=== PATIENT | female | born 1985 | race Hispanic/Latino ===

== ENCOUNTER 2022-06-18 07:58 | Emergency (ER) | payer SELFPAY ==
--- OUTSIDE RECORDS SUMMARY | 2022-06-18 08:03 | XMS REPORT | Continuity of Care Document ---
:1985 Author Organization [facility] t Address [address] [place] [address] Care Team Providers Name Role Phone Yolanda Bucio Primary Care Physician [phone] Sue Loomis RN, Yady Attending Clinician Unavailable Lab, Adc Fam Pob I Attending Clinician Unavailable Rachel Palm Attending Clinician Payers Payer Name Policy Type Policy Number Effective Date Ex[id number] 2016 00:00:00 OUT OF STATE Problems Condition Condition Condition Status Onset Resolution Last Treating Co mments Source Name Details Category Date Date Treatment Clinician Date Neck mass Neck mass Disease Active 2017-09 Overview: Univers 2-10 Added ity of 00:00: automatic [place] 00 ally from Medical request Branch for surgery [id number] Localized Localized Disease Active 2017-09 Uni vers swelling, swelling, 1-02 ity of mass and mass and 00:00: [place] lump, neck lump, neck 00 Me dical Branch Positive Positive Disease Active Unive rs [facility] [facility] 9- ity of (antinucle [place] Medical antibody) antibody) Bran ch Fatty Fatty Disease Active Univers liver liver 05-23 ity of 00:00: [place] 00 Medical Branch Sludge in Sludge in Disease Active Uni vers gallbladde gallbladde 05-23 it y of r r 00:00: [place] 00 Medical Branch Abnormal Abnormal Disease Active Unive rs liver liver 04-25 ity of function function 00:00: [place] tests tests 00 Medical Branch Dyslipidem Dyslipidem Disease Active U aliciaers ia ia 7-28 ity of 00:00: [place] 00 Medical Branch Vitamin D Vitamin D Disease Active Uni vers deficiency deficiency 04-25 it y of 00:00: [place] 00 Medical Branch Type 2 Type 2 Disease Active Univers diabetes diabetes 04-18 ity of mellitus mellitus 00:00: [place] without without 00 Medical complicati complicati Br anch on, on, without without long-term long-term current current use of use of insulin insulin Obesity Obesity Disease Active Univers (BMI (BMI - ity of 30-39.9) 30-39.9) 00:00: [place] 00 Medical Branch Fatigue, Fatigue, Disease Active Unive rs unspecifie unspecifie 04-18 it y of d type d type 00:00: [place] Medical Branch Allergies, Adverse Reactions, Alerts Allergy Allergy Status Severity Reaction(s) Onset Inactive Treating Comm ents Source Name Type Date Date Clinician NO KNOWN Drug Active [facility] ALLERGIE Class ity of S [facility] Social History Social Habit Start Date Stop Date Quantity Comments Source Sex Assigned At [facility] [place] [facility] Branch Exposure to Not sure [facility] SARS-CoV-2 (event) Medica l Branch Alcohol intake 2018-11-03 2018-11-03 [facility] 00:00:00 00:00:00 [facility] Branch Smoking Status Start Date Stop Date Source Never smoker [facility] Medications Ordered Filled Start Stop Current Ordering Indication Dosage Frequency Signature Comments Components Source Medication Medication Date Date Medication? Clinician (SIG) Name Name glimepiride No 1mg 1 mg tablet 4-23 00:00: 00 metformin 2021- No 1mg 1,000 mg 4-23 tablet 00:00: 00 Dose 2021-0 No Unknown 4-23 00:00: 00 Dose 2021-0 No Unknown 4-23 00:00: 00 Dose 2021-0 No Unknown 4-23 00:00: 00 Dose 2021-0 No Unknown 4-23 00:00: 00 Dose 2021-0 No Unknown 4-23 00:00: 00 Dose 2021-0 No Unknown 4-23 00:00: 00 Dose 2021-0 No Unknown 4-23 00:00: 00 Dose 2021-0 No Unknown 4-23 00:00: 00 Dose 2021-0 No Unknown 4-23 00:00: 00 Dose 2022-0 No Unknown 4-23 00:00: 00 Dose 2022-0 No Unknown 4-23 00:00: 00 Dose 2022-0 No Unknown 4-23 00:00: 00 Dose 2022-0 No Unknown 4-23 00:00: 00 Dose 2022-0 No Unknown 4-23 00:00: 00 Dose 2022-0 No Unknown 4-23 00:00: 00 Dose 2022-0 No Unknown 4-23 00:00: 00 Dose 2022-0 No Unknown 4-23 00:00: 00 Dose 2022-0 No Unknown 4-23 00:00: 00 Dose 2022-0 No Unknown 4- 00:00: 00 Dose 2022-0 No Unknown 4-23 00:00: 00 Dose 2022-0 No Unknown 4- 00:00: 00 glimepiride 2021-1 No 1mg 1 mg tablet 1-27 00:00: 00 metformin 2021-1 No 1mg 1,000 mg 1-27 tablet 00:00: 00 glimepiride 2021-0 No 1mg 1 mg tablet 7-13 00:00: 00 metformin 2021-0 No 1mg 1,000 mg 7-13 tablet 00:00: 00 glimepiride 1-0 No 1mg 1 mg tablet 7-02 00:00: 00 metformin 2021-0 No 1mg 1,000 mg 7-02 tablet 00:00: 00 cyclobenzap 2021-0 No 1mg rine 7.5 mg 6-28 tablet 00:00: 00 ibuprofen 2021-0 No 1mg 600 mg 6-28 tablet 00:00: 00 levofloxaci 2021-0 No 1mg n 250 mg 5-26 tablet 00:00: 00 Macrobid 2021-0 No 1mg 100 mg 5-20 capsule 00:00: 00 Bactrim DS 2021-0 No 1mg 800 mg-160 3-27 mg tablet 00:00: 00 Bactrim DS 2021-0 No 1mg 800 mg-160 3-26 mg tablet 00:00: 00 mupirocin 2 1-0 No 1% % topical 3-18 ointment 00:00: 00 glimepiride 2021-0 No 1mg 1 mg tablet 3-18 00:00: 00 metformin 2021-0 No 1mg 1,000 mg 3-18 tablet 00:00: 00 metformin 2021-0 No 1mg 1,000 mg 1-12 tablet 00:00: 00 glimepiride 2020-1 No 1mg 1 mg tablet 2-31 00:00: 00 metformin 2020-1 No 1mg 1,000 mg 2-31 tablet 00:00: 00 glimepiride 2020-1 No 1mg 2 mg tablet 0-01 00:00: 00 metformin 2020-1 No 1mg 1,000 mg 0-01 tablet 00:00: 00 hydroxyzine 2020-0 No 1mg HCl 50 mg 8-10 tablet 00:00: 00 fluoxetine 2020-0 No 1mg 20 mg 8-10 capsule 00:00: 00 glimepiride 2020-0 No 1mg 2 mg tablet 3-20 00:00: 00 loratadine 2020-0 No 1mg 10 mg 3-20 tablet 00:00: 00 metformin 2020-0 No 1mg 1,000 mg 3-20 tablet 00:00: 00 azithromyci 2020-0 No mg n 250 mg 3-03 tablet 00:00: 00 glimepiride 2019-0 No 1mg 2 mg tablet 9-14 00:00: 00 metformin 2019-0 No 1mg 1,000 mg 9-14 tablet 00:00: 00 glimepiride 2019-0 No 1mg 2 mg tablet 6-29 00:00: 00 metformin 2019-0 No 1mg 1,000 mg 6-29 tablet 00:00: 00 metformin 2019-0 No 1mg 1,000 mg 6-04 tablet 00:00: 00 glimepiride 2019-0 No 1mg 2 mg tablet 5-25 00:00: 00 glimepiride 2019-0 No 1mg 2 mg tablet 5-25 00:00: 00 metformin 2019-0 No 1mg 500 mg 5-25 tablet 00:00: 00 glimepiride 2019-0 Yes [id number] 2mg Take 1 Univers 2 mg tablet 3-04 tablet by ity of 00:00: mouth [place] 00 daily with Medical breakfast. Branch glimepiride 0 Yes [id number] 2mg Take 1 Univers 2 mg tablet 3-04 tablet by ity of 00:00: mouth [place] 00 daily with Medical breakfast. Branch ceFAZolin 2018-1 Yes 1000mg Univer s (ANCEF) 2-31 ity of 1,000 mg in 12:00: [place] NaCl 0.9% 00 Medical (NS) 50 mL Branch ADD-VANTAGE ceFAZolin 2017-09 Yes 1000mg Univer s (ANCEF) 2-31 ity of 1,000 mg in 12:00: [place] NaCl 0.9% 00 Medical (NS) 50 mL Branch ADD-VANTAGE metFORMIN Yes [id number] 1000mg Take 1 Univers 1,000 mg 5-04 tablet by ity of tablet 00:00: mouth 2 [place] (two) Medical times Branch daily with meals. metFORMIN Yes [id number] 1000mg Take 1 Univers 1,000 mg 5-04 tablet by ity of tablet 00:00: mouth 2 [place] (two) Medical times Branch daily with meals. metformin 0 No 1mg 500 mg 2-23 tablet 00:00: 00 metformin 0 No 1mg 500 mg 2-10 tablet 00:00: 00 metformin 0 No 1mg 500 mg 6-17 tablet 00:00: 00 metformin 20160 No 1mg 500 mg 3-20 tablet 00:00: 00 metformin 1 No 1mg 1,000 mg 2-16 tablet 00:00: 00 Paxil 20 mg 2014-09 No 1mg tablet 2-11 00:00: 00 metformin 2014-09 No 1mg 500 mg 2-11 tablet 00:00: 00 metformin 1 No 1mg 500 mg 0-30 tablet 00:00: 00 Immunizations Ordered Filled Immunization Date Status Comments Sour e Immunization Name Name Tdap 2020-09-04 Completed 00:00:00 HEP B, Adult Dosage 2018-01-06 Completed Unive rsity of 00:00:00 [facility] HEP B, Adult Dosage 2018-01-06 Completed Unive rsity of 00:00:00 [facility] HEP B, Adult Dosage 2017-08-05 Completed Unive rsity of 00:00:00 [facility] HEP B, Adult Dosage 2017-08-05 Completed Unive rsity of 00:00:00 [facility] HEP B, Adult Dosage 2017-07-04 Completed Unive rsity of 00:00:00 [facility] HEP B, Adult Dosage 2017-07-04 Completed Unive rsity of 00:00:00 [facility] Td 2009 Completed University 00:00:00 [facility] Td 2009 Completed University 00:00:00 [facility] Vital Signs Vital Name Observation Time Observation Value Comments Source BP Systolic 2022-01-19 13:50:00 125 mm[Hg] BP Diastolic 2022-01-19 13:50:00 76 mm[Hg] Weight Measured 2022-01-19 13:50:00 176.40 pounds Height Measured 2022-01-19 13:50:00 66.00 inches Body Temperature 2022-01-19 13:50:00 98.40 degrees Heart Rate 2022-01-19 13:50:00 74.00 /min Respiratory Rate 2022-01-19 13:50:00 BP Systolic 2021-08-27 08:16:00 125 mm[Hg] BP Diastolic 2021-08-27 08:16:00 78 mm[Hg] Weight Measured 2021-08-27 08:16:00 172.00 pounds Height Measured 2021-08-27 08:16:00 66.00 inches Body Temperature 2021-08-27 08:16:00 98.20 degrees Heart Rate 2021-08-27 08:16:00 76.00 /min Respiratory Rate 2021-08-27 08:16:00 BP Systolic 2021-08-25 08:11:00 113 mm[Hg] BP Diastolic 2021-08-25 08:11:00 72 mm[Hg] Weight Measured 2021-08-25 08:11:00 172.20 pounds Height Measured 2021-08-25 08:11:00 66.00 inches Body Temperature 2021-08-25 08:11:00 98.20 degrees Heart Rate 2021-08-25 08:11:00 63.00 /min Respiratory Rate 2021-08-25 08:11:00 BP Systolic 2021-03-26 16:15:00 117 mm[Hg] BP Diastolic 2021-03-26 16:15:00 72 mm[Hg] Weight Measured 2021-03-26 16:15:00 168.80 pounds Height Measured 2021-03-26 16:15:00 66.00 inches Body Temperature 2021-03-26 16:15:00 98.10 degrees Heart Rate 2021-03-26 16:15:00 67.00 /min Respiratory Rate 2021-03-26 16:15:00 17.00 /min BP Systolic 2021-02-15 16:00:00 109 mm[Hg] BP Diastolic 2021-02-15 16:00:00 67 mm[Hg] Weight Measured 2021-02-15 16:00:00 166.60 pounds Height Measured 2021-02-15 16:00:00 66.00 inches Body Temperature 2021-02-15 16:00:00 99.20 degrees Heart Rate 2021-02-15 16:00:00 70.00 /min Respiratory Rate 2021-02-15 16:00:00 20.00 /min BP Systolic 2020-12-22 16:28:00 107 mm[Hg] BP Diastolic 2020-12-22 16:28:00 63 mm[Hg] Weight Measured 2020-12-22 16:28:00 165.40 pounds Height Measured 2020-12-22 16:28:00 66.00 inches Body Temperature 2020-12-22 16:28:00 98.30 degrees Heart Rate 2020-12-22 16:28:00 66.00 /min Respiratory Rate 2020-12-22 16:28:00 17.00 /min BP Systolic 2020-12-14 16:18:00 120 mm[Hg] BP Diastolic 2020-12-14 16:18:00 74 mm[Hg] Weight Measured 2020-12-14 16:18:00 168.80 pounds Height Measured 2020-12-14 16:18:00 66.00 inches Body Temperature 2020-12-14 16:18:00 99.10 degrees Heart Rate 2020-12-14 16:18:00 70.00 /min Respiratory Rate 2020-12-14 16:18:00 17.00 /min BP Systolic 2020-09-28 15:20:00 106 mm[Hg] BP Diastolic 2020-09-28 15:20:00 65 mm[Hg] Weight Measured 2020-09-28 15:20:00 168.20 pounds Height Measured 2020-09-28 15:20:00 66.00 inches Body Temperature 2020-09-28 15:20:00 98.70 degrees Heart Rate 2020-09-28 15:20:00 67.00 /min Respiratory Rate 2020-09-28 15:20:00 BP Systolic 2020-09-04 15:16:00 116 mm[Hg] BP Diastolic 2020-09-04 15:16:00 74 mm[Hg] Weight Measured 2020-09-04 15:16:00 Height Measured 2020-09-04 15:16:00 66.00 inches Body Temperature 2020-09-04 15:16:00 98.60 degrees Heart Rate 2020-09-04 15:16:00 75.00 /min Respiratory Rate 2020-09-04 15:16:00 16.00 /min BP Systolic 2020-09-02 13:41:00 101 mm[Hg] BP Diastolic 2020-09-02 13:41:00 61 mm[Hg] Weight Measured 2020-09-02 13:41:00 200.00 pounds Height Measured 2020-09-02 13:41:00 66.00 inches Body Temperature 2020-09-02 13:41:00 98.20 degrees Heart Rate 2020-09-02 13:41:00 72.00 /min Respiratory Rate 2020-09-02 13:41:00 Procedures This patient has no known procedures. Plan of Care Planned Activity Planned Date Details Comments Source Goal Plan of Care Note [code = 99005-5] Goal Plan of Care Note [code = 91376-3] Goal Plan of Care Note [code = 28923-3] Goal Plan of Care Note [code = 50806-8] Goal Plan of Care Note [code = 46296-5] Goal Plan of Care Note [code = 64715-1] Goal Plan of Care Note [code = 76977-2] Goal Plan of Care Note [code = 84789-1] Goal Plan of Care Note [code = 55551-1] Goal Plan of Care Note [code = 08515-4] Goal Plan of Care Note [code = 81281-6] Goal Plan of Care Note [code = 57656-2] Goal Plan of Care Note [code = 76280-7] Goal Plan of Care Note [code = 58170-9] Goal Plan of Care Note [code = 91809-8] Goal Plan of Care Note [code = 55429-0] Goal Plan of Care Note [code = 70197-1] Goal Plan of Care Note [code = 35375-3] Goal Plan of Care Note [code = 08451-4] Goal Plan of Care Note [code = 62205-4] Goal Plan of Care Note [code = 31347-2] Goal Plan of Care Note [code = 49307-5] Goal Plan of Care Note [code = 47315-9] Goal Plan of Care Note [code = 78012-9] Goal Plan of Care Note [code = 50364-2] Goal Plan of Care Note [code = 92711-7] Goal Plan of Care Note [code = 44760-4] Goal Plan of Care Note [code = 77193-3] Goal Plan of Care Note [code = 09771-3] Goal Plan of Care Note [code = 04598-6] Goal Plan of Care Note [code = 82084-9] Encounters Start End Encounter Admission Attending Care Care Encounter Source Date/Time Date/Time Type Type Clinicians Facility Department ID 2022-04-25 2022-04-25 Outpatient [id number] 00:00:00 00:00:00 Visit [id number] 2020-04-16 2020-04-16 Letter Sue [facility] [id number] Univers 00:00:00 00:00:00 (Out) IGNACIO Loomis [id number] ity of [facility] [id number] [place] [phone] [address] 2020-04-14 2020-04-14 Laboratory Lab, [facility] Pob I [facility] 1.2. [id number] Univers 13:17:43 13:37:43 Only MyrnaNatalieRachel [facility] [id number] ity [facility] [id number] [place] Paulina [phone] [address] Office Building [address] 2020-04-14 2020-04-14 Outpatient R [facility] [id number] Univers 13:20:00 13:20:00 [id number] ity [facility] 2020-04-14 2020-04-14 Outpatient R [facility] [id number] [address] [place] [address] 13:20:00 13:20:00 [facility] [place] [facility] Results Test Description Test Time Test Comments Results Result Comments Source LIPID PANEL 2022-01-21 00:14:15 Test Item Value Reference Range Interpretation Comme nts CHOLESTEROL (test code = 2210) 180 MG/DL <200 TRIGLYCERIDES (test code = 2232) 229 MG/DL <150 H HDL CHOLESTEROL (test code = 38 MG/DL >39 L 2220) CALC LDL CHOL (test code = 2237) 107 MG/DL <100 H NOTE: CALCULATED LDL IS BASED ON TATYANA-CALHOUN METHOD WHICHINCLUDES A DJUSTABLE TRIGLYCERIDE:VL DL CHOLESTEROL RATIO.THIS FACT OR VARIES BY MEASURED TRIGLY CERIDE AND NON-HDLCHOLESTE ROL CONCENTRATIONS WITH INCREASED CALCULATED LDL SEENIN HIGHER T RIGLYCERIDE OR LOWER NON-HDL S PECIMENS. FOR MOREINFORMATION , SEE CLIENT ANNOUNCEMENT AT [email or web address] RISK RATIO LDL/HDL (test code = 2.82 RATIO <3.22 UNLESS OTHERWISE INDICATED, ALL 2238) TESTING PERFORM ED ATCLINICAL PATHOLOGY [facility] Laboratory. [address] [place] [id number] LABORATORY DIRE CTOR: RUBY CANALES M.D. CLIA NUMBER [id number] [facility] [place]. [id number] LIPID [id number] 00:00:00 Test Item Value Reference Range Interpretation Comments CHOLESTEROL (test code = 2210) 180 MG/DL TRIGLYCERIDES (test code = 2232) 229 MG/DL HDL CHOLESTEROL (test code = 2220) 38 MG/DL CALC LDL CHOL (test code = 2237) 107 MG/DL RISK RATIO LDL/HDL (test code = 2.82 RATIO 2238) HEMOGLOBIN [id number] 03:17:58 Test Item Value Reference Range Interpretation Comments HEMOGLOBIN A1c (test code = 03796) 5.7 % 4.2-5.6 H HEMOGLOBIN [id number] 00:00:00 Test Item Value Reference Range Interpretation Comments HEMOGLOBIN A1c (test code = 97238) 5.7 % HEMOGLOBIN [id number] 00:00:00 Test Item Value Reference Range Interpretation Comments HEMOGLOBIN A1c (test code = 42140) 5.7 % HEMOGLOBIN [id number] 00:00:00 Test Item Value Reference Range Interpretation Comments HEMOGLOBIN A1c (test code = 21915) 5.6 % HEMOGLOBIN [id number] 00:00:00 Test Item Value Reference Range Interpretation Comments HEMOGLOBIN A1c (test code = 81889) 5.6 % LIPID [id number] 00:00:00 Test Item Value Reference Range Interpretation Comments CHOLESTEROL (test code = 2210) 172 MG/DL TRIGLYCERIDES (test code = 2232) 106 MG/DL HDL CHOLESTEROL (test code = 2220) 45 MG/DL CALC LDL CHOL (test code = 2237) 107 MG/DL RISK RATIO LDL/HDL (test code = 2.38 RATIO 2238) MICROALBUMIN/CREATININE, RANDOM AND [id number] 00:00:00 Test Item Value Reference Range Interpretation Comments CREATININE, URINE, CONC. (test 182.4 MG/DL code = 2072) ALBUMIN, URINE, RANDOM (test code 2.1 MG/DL = 81947) CALC ALBUMIN/CREAT, RND (test 12 MG/G code = 84377) MICROALBUMIN/CREATININE, RANDOM AND [id number] 00:00:00 Test Item Value Reference Range Interpretation Comments CREATININE, URINE, TEST NOT PERFORMED MG/DL CONC. (test code = 2072) ALBUMIN, URINE, TEST NOT PERFORMED MG/DL RANDOM (test code = 99097) CALC ALBUMIN/CREAT, TEST NOT PERFORMED MG/G RND (test code = 88112) LIPID [id number] 00:00:00 Test Item Value Reference Range Interpretation Comments CHOLESTEROL (test code = 2210) 156 MG/DL TRIGLYCERIDES (test code = 2232) 134 MG/DL HDL CHOLESTEROL (test code = 2220) 58 MG/DL CALC LDL CHOL (test code = 2237) 76 MG/DL RISK RATIO LDL/HDL (test code = 1.31 RATIO 2238) COMPREHENSIVE METABOLIC [id number] 00:00:00 Test Item Value Reference Range Interpretation Comments GLUCOSE (test code = 2217) 98 MG/DL BUN (test code = 2208) 14 MG/DL CREATININE (test code = 2214) 0.65 MG/DL eGFR AMER. (test code 132 ML/MIN/1.73 = 32965) eGFR NON- AMER. (test 114 ML/MIN/1.73 code = 91547) CALC BUN/CREAT (test code = 22 RATIO 2234) SODIUM (test code = 2231) 138 MEQ/L POTASSIUM (test code = 2228) 4.2 MEQ/L CHLORIDE (test code = 2215) 103 MEQ/L CARBON DIOXIDE (test code = 23 MEQ/L 2205) CALCIUM (test code = 2209) 9.5 MG/DL PROTEIN, TOTAL (test code = 6.8 G/DL 2228) ALBUMIN (test code = 2201) 4.2 G/DL CALC GLOBULIN (test code = 2.6 G/DL 2239) CALC A/G RATIO (test code = 1.6 RATIO 2233) BILIRUBIN, TOTAL (test code = 0.3 MG/DL 2206) ALKALINE PHOSPHATASE (test 41 U/L code = 220) AST (test code = 2218) 15 U/L ALT (test code = 2219) 9 U/L CBC W/AUTO [id number] 00:00:00 Test Item Value Reference Range Interpretation Comments WBC (test code = 1001) 5.5 K/UL RBC (test code = 1002) 4.49 M/UL HEMOGLOBIN (test code = 1003) 12.9 G/DL HEMATOCRIT (test code = 1004) 38.7 % MCV (test code = 1005) 86.2 fL MCH (test code = 1006) 28.7 PG MCHC (test code = 1007) 33.3 G/DL RDW (test code = 1038) 13.0 % NEUTROPHILS (test code = 1008) 59.0 % LYMPHOCYTES (test code = 1010) 34.1 % MONOCYTES (test code = 1011) 6.3 % EOSINOPHILS (test code = 1012) 0.2 % BASOPHILS (test code = 1013) 0.2 % IMMATURE GRANULOCYTES (test 0.2 % code = 1036) NUCLEATED RBCS (test code = 0.0 /100WBC'S 1065) PLATELET COUNT (test code = 173 K/UL 1015) ABSOLUTE NEUTROPHILS (test code 3.26 K/UL = 1066) ABSOLUTE LYMPHOCYTES (test code 1.88 K/UL = 1067) ABSOLUTE MONOCYTES (test code = 0.35 K/UL 1068) ABSOLUTE EOSINOPHILS (test code 0.01 K/UL = 1040) ABSOLUTE BASOPHILS (test code = 0.01 K/UL 1069) ABS IMMATURE GRANULOCYTES (test 0.01 K/UL code = 1020) ABS NUCLEATED RBCS (test code = 0.00 K/UL 87353) CBC W/AUTO [id number] 00:00:00 Test Item Value Reference Range Interpretation Comments WBC (test code = 1001) 5.5 K/UL RBC (test code = 1002) 4.49 M/UL HEMOGLOBIN (test code = 1003) 12.9 G/DL HEMATOCRIT (test code = 1004) 38.7 % MCV (test code = 1005) 86.2 fL MCH (test code = 1006) 28.7 PG MCHC (test code = 1007) 33.3 G/DL RDW (test code = 1038) 13.0 % NEUTROPHILS (test code = 1008) 59.0 % LYMPHOCYTES (test code = 1010) 34.1 % MONOCYTES (test code = 1011) 6.3 % EOSINOPHILS (test code = 1012) 0.2 % BASOPHILS (test code = 1013) 0.2 % IMMATURE GRANULOCYTES (test 0.2 % code = 1036) NUCLEATED RBCS (test code = 0.0 /100WBC'S 1065) PLATELET COUNT (test code = 173 K/UL 1015) ABSOLUTE NEUTROPHILS (test code 3.26 K/UL = 1066) ABSOLUTE LYMPHOCYTES (test code 1.88 K/UL = 1067) ABSOLUTE MONOCYTES (test code = 0.35 K/UL 1068) ABSOLUTE EOSINOPHILS (test code 0.01 K/UL = 1040) ABSOLUTE BASOPHILS (test code = 0.01 K/UL 1069) ABS IMMATURE GRANULOCYTES (test 0.01 K/UL code = 1020) ABS NUCLEATED RBCS (test code = 0.00 K/UL 08289) HEMOGLOBIN [id number] 00:00:00 Test Item Value Reference Range Interpretation Comments HEMOGLOBIN A1c (test code = 03992) 5.5 % HEMOGLOBIN [id number] 00:00:00 Test Item Value Reference Range Interpretation Comments HEMOGLOBIN A1c (test code = 09793) 5.5 % CULTURE, [id number] 00:00:00 Test Item Value Reference Range Interpretation Comments CULTURE, URINE (test SPECIMEN NUMBER: code = 72218) [id number] LIPID [id number] 00:00:00 Test Item Value Reference Range Interpretation Comments CHOLESTEROL (test code = 2210) 197 MG/DL TRIGLYCERIDES (test code = 2232) 357 MG/DL HDL CHOLESTEROL (test code = 2220) 35 MG/DL CALC LDL CHOL (test code = 2237) 111 MG/DL RISK RATIO LDL/HDL (test code = 3.17 RATIO 2238) MICROALBUMIN/CREATININE, RANDOM AND [id number] 00:00:00 Test Item Value Reference Range Interpretation Comments CREATININE, URINE, CONC. (test 195.5 MG/DL code = 2072) ALBUMIN, URINE, RANDOM (test code 1.0 MG/DL = 52540) CALC ALBUMIN/CREAT, RND (test 5 MG/G code = 81071) HEMOGLOBIN [id number] 00:00:00 Test Item Value Reference Range Interpretation Comments HEMOGLOBIN A1c (test code = 85172) 6.2 % HEMOGLOBIN [id number] 00:00:00 Test Item Value Reference Range Interpretation Comments HEMOGLOBIN A1c (test code = 45389) 6.2 % COMPREHENSIVE METABOLIC [id number] 00:00:00 Test Item Value Reference Range Interpretation Comments GLUCOSE (test code = 2217) 112 MG/DL BUN (test code = 2208) 11 MG/DL CREATININE (test code = 2214) 0.54 MG/DL eGFR AMER. (test code 143 ML/MIN/1.73 = 27654) eGFR NON- AMER. (test 123 ML/MIN/1.73 code = 23116) CALC BUN/CREAT (test code = 20 RATIO 2235) SODIUM (test code = 2231) 141 MEQ/L POTASSIUM (test code = 2228) 4.3 MEQ/L CHLORIDE (test code = 2215) 103 MEQ/L CARBON DIOXIDE (test code = 25 MEQ/L 2205) CALCIUM (test code = 2209) 9.2 MG/DL PROTEIN, TOTAL (test code = 7.2 G/DL 2228) ALBUMIN (test code = 2201) 4.6 G/DL CALC GLOBULIN (test code = 2.6 G/DL 2239) CALC A/G RATIO (test code = 1.8 RATIO 2234) BILIRUBIN, TOTAL (test code = 0.4 MG/DL 2206) ALKALINE PHOSPHATASE (test 67 U/L code = 2204) AST (test code = 2218) 20 U/L ALT (test code = 2219) 24 U/L LIPID [id number] 00:00:00 Test Item Value Reference Range Interpretation Comments CHOLESTEROL (test code = 2210) 110 MG/DL TRIGLYCERIDES (test code = 2232) 76 MG/DL HDL CHOLESTEROL (test code = 2220) 42 MG/DL CALC LDL CHOL (test code = 2237) 53 MG/DL RISK RATIO LDL/HDL (test code = 1.26 RATIO 2238) HEMOGLOBIN [id number] 00:00:00 Test Item Value Reference Range Interpretation Comments HEMOGLOBIN A1c (test code = 57626) 6.4 % HEMOGLOBIN [id number] 00:00:00 Test Item Value Reference Range Interpretation Comments HEMOGLOBIN A1c (test code = 72434) 6.4 % COMPREHENSIVE METABOLIC [id number] 00:00:00 Test Item Value Reference Range Interpretation Comments GLUCOSE (test code = 2217) 130 MG/DL BUN (test code = 2208) 11 MG/DL CREATININE (test code = 2214) 0.61 MG/DL eGFR AMER. (test code 137 ML/MIN/1.73 = 07153) eGFR NON- AMER. (test 118 ML/MIN/1.73 code = 38696) CALC BUN/CREAT (test code = 18 RATIO 2235) SODIUM (test code = 2231) 138 MEQ/L POTASSIUM (test code = 2228) 4.4 MEQ/L CHLORIDE (test code = 2215) 101 MEQ/L CARBON DIOXIDE (test code = 23 MEQ/L 2205) CALCIUM (test code = 2209) 9.6 MG/DL PROTEIN, TOTAL (test code = 7.1 G/DL 2228) ALBUMIN (test code = 2201) 4.5 G/DL CALC GLOBULIN (test code = 2.6 G/DL 2239) CALC A/G RATIO (test code = 1.7 RATIO 4) BILIRUBIN, TOTAL (test code = 0.4 MG/DL 2206) ALKALINE PHOSPHATASE (test 70 U/L code = 2204) AST (test code = 2218) 25 U/L ALT (test code = 2219) 33 U/L [id number] 00:00:00 Test Item Value Reference Range Interpretation Comments TSH, THIRD GENERATION (test code 1.660 UIU/ML = 2821) [id number] 00:00:00 Test Item Value Reference Range Interpretation Comments TSH, THIRD GENERATION (test code 1.660 UIU/ML = 2821) LIPID [id number] 00:00:00 Test Item Value Reference Range Interpretation Comments CHOLESTEROL (test code = 2210) 128 MG/DL TRIGLYCERIDES (test code = 2232) 116 MG/DL HDL CHOLESTEROL (test code = 2220) 38 MG/DL CALC LDL CHOL (test code = 2237) 67 MG/DL RISK RATIO LDL/HDL (test code = 1.76 RATIO 2238) HEMOGLOBIN [id number] 00:00:00 Test Item Value Reference Range Interpretation Comments HEMOGLOBIN A1c (test code = 51055) 6.6 % HEMOGLOBIN [id number] 00:00:00 Test Item Value Reference Range Interpretation Comments HEMOGLOBIN A1c (test code = 75032) 6.6 % CBC W/AUTO [id number] 00:00:00 Test Item Value Reference Range Interpretation Comments WBC (test code = 1001) 6.9 K/UL RBC (test code = 1002) 5.01 M/UL HEMOGLOBIN (test code = 1003) 14.6 G/DL HEMATOCRIT (test code = 1004) 43.6 % MCV (test code = 1005) 87.0 fL MCH (test code = 1006) 29.1 PG MCHC (test code = 1007) 33.5 G/DL RDW (test code = 1038) 12.8 % NEUTROPHILS (test code = 1008) 49.9 % LYMPHOCYTES (test code = 1010) 41.6 % MONOCYTES (test code = 1011) 7.4 % EOSINOPHILS (test code = 1012) 0.7 % BASOPHILS (test code = 1013) 0.4 % PLATELET COUNT (test code = 1015) 196 K/UL CBC W/AUTO [id number] 00:00:00 Test Item Value Reference Range Interpretation Comments WBC (test code = 1001) 6.9 K/UL RBC (test code = 1002) 5.01 M/UL HEMOGLOBIN (test code = 1003) 14.6 G/DL HEMATOCRIT (test code = 1004) 43.6 % MCV (test code = 1005) 87.0 fL MCH (test code = 1006) 29.1 PG MCHC (test code = 1007) 33.5 G/DL RDW (test code = 1038) 12.8 % NEUTROPHILS (test code = 1008) 49.9 % LYMPHOCYTES (test code = 1010) 41.6 % MONOCYTES (test code = 1011) 7.4 % EOSINOPHILS (test code = 1012) 0.7 % BASOPHILS (test code = 1013) 0.4 % PLATELET COUNT (test code = 1015) 196 K/UL COMPREHENSIVE METABOLIC [id number] 00:00:00 Test Item Value Reference Range Interpretation Comments GLUCOSE (test code = 2217) 122 MG/DL BUN (test code = 2208) 12 MG/DL CREATININE (test code = 2214) 0.57 MG/DL eGFR AMER. (test code 140 ML/MIN/1.73 = 72728) eGFR NON- AMER. (test 121 ML/MIN/1.73 code = 34544) CALC BUN/CREAT (test code = 21 RATIO 2235) SODIUM (test code = 2231) 138 MEQ/L POTASSIUM (test code = 2228) 4.2 MEQ/L CHLORIDE (test code = 2215) 102 MEQ/L CARBON DIOXIDE (test code = 24 MEQ/L 2205) CALCIUM (test code = 2209) 9.3 MG/DL PROTEIN, TOTAL (test code = 7.0 G/DL 2228) ALBUMIN (test code = 2201) 4.4 G/DL CALC GLOBULIN (test code = 2.6 G/DL 2240) CALC A/G RATIO (test code = 1.7 RATIO 2234) BILIRUBIN, TOTAL (test code = 0.3 MG/DL 2206) ALKALINE PHOSPHATASE (test 68 U/L code = 2204) AST (test code = 2218) 29 U/L ALT (test code = 2219) 44 U/L LIPID [id number] 00:00:00 Test Item Value Reference Range Interpretation Comments CHOLESTEROL (test code = 2210) 177 MG/DL TRIGLYCERIDES (test code = 2232) 185 MG/DL HDL CHOLESTEROL (test code = 2220) 39 MG/DL CALC LDL CHOL (test code = 2237) 101 MG/DL RISK RATIO LDL/HDL (test code = 2.59 RATIO 2238) COMPREHENSIVE METABOLIC [id number] 00:00:00 Test Item Value Reference Range Interpretation Comments GLUCOSE (test code = 2217) 138 MG/DL BUN (test code = 2208) 12 MG/DL CREATININE (test code = 2214) 0.57 MG/DL eGFR AMER. (test code 140 ML/MIN/1.73 = 58612) eGFR NON- AMER. (test 121 ML/MIN/1.73 code = 83181) CALC BUN/CREAT (test code = 21 RATIO 2235) SODIUM (test code = 2231) 142 MEQ/L POTASSIUM (test code = 2228) 4.5 MEQ/L CHLORIDE (test code = 2215) 104 MEQ/L CARBON DIOXIDE (test code = 25 MEQ/L 220) CALCIUM (test code = 2209) 9.4 MG/DL PROTEIN, TOTAL (test code = 7.1 G/DL 2228) ALBUMIN (test code = 2201) 4.5 G/DL CALC GLOBULIN (test code = 2.6 G/DL 224) CALC A/G RATIO (test code = 1.7 RATIO 2234) BILIRUBIN, TOTAL (test code = 0.4 MG/DL 2206) ALKALINE PHOSPHATASE (test 59 U/L code = 2204) AST (test code = 2218) 27 U/L ALT (test code = 2219) 42 U/L CBC W/AUTO [id number] 00:00:00 Test Item Value Reference Range Interpretation Comments WBC (test code = 1001) 6.5 K/UL RBC (test code = 1002) 4.99 M/UL HEMOGLOBIN (test code = 1003) 14.3 G/DL HEMATOCRIT (test code = 1004) 43.6 % MCV (test code = 1005) 87.4 fL MCH (test code = 1006) 28.7 PG MCHC (test code = 1007) 32.8 G/DL RDW (test code = 1038) 13.1 % NEUTROPHILS (test code = 1008) 53.9 % LYMPHOCYTES (test code = 1010) 38.3 % MONOCYTES (test code = 1011) 6.6 % EOSINOPHILS (test code = 1012) 0.6 % BASOPHILS (test code = 1013) 0.6 % PLATELET COUNT (test code = 1015) 210 K/UL CBC W/AUTO [id number] 00:00:00 Test Item Value Reference Range Interpretation Comments WBC (test code = 1001) 6.5 K/UL RBC (test code = 1002) 4.99 M/UL HEMOGLOBIN (test code = 1003) 14.3 G/DL HEMATOCRIT (test code = 1004) 43.6 % MCV (test code = 1005) 87.4 fL MCH (test code = 1006) 28.7 PG MCHC (test code = 1007) 32.8 G/DL RDW (test code = 1038) 13.1 % NEUTROPHILS (test code = 1008) 53.9 % LYMPHOCYTES (test code = 1010) 38.3 % MONOCYTES (test code = 1011) 6.6 % EOSINOPHILS (test code = 1012) 0.6 % BASOPHILS (test code = 1013) 0.6 % PLATELET COUNT (test code = 1015) 210 K/UL HEMOGLOBIN [id number] 00:00:00 Test Item Value Reference Range Interpretation Comments HEMOGLOBIN A1c (test code = 41807) 6.4 % HEMOGLOBIN [id number] 00:00:00 Test Item Value Reference Range Interpretation Comments HEMOGLOBIN A1c (test code = 30542) 6.4 % HEMOGLOBIN [id number] 00:00:00 Test Item Value Reference Range Interpretation Comments HEMOGLOBIN A1c (test code = 94953) 6.9 % HEMOGLOBIN [id number] 00:00:00 Test Item Value Reference Range Interpretation Comments HEMOGLOBIN A1c (test code = 90732) 6.9 % HEMOGLOBIN [id number] 00:00:00 Test Item Value Reference Range Interpretation Comments HEMOGLOBIN A1c (test code = 54689) 6.1 % HEMOGLOBIN [id number] 00:00:00 Test Item Value Reference Range Interpretation Comments HEMOGLOBIN A1c (test code = 13217) 6.1 % CBC W/AUTO [id number] 00:00:00 Test Item Value Reference Range Interpretation Comments WBC (test code = 1001) 9.7 K/UL RBC (test code = 1002) 5.08 M/UL HEMOGLOBIN (test code = 1003) 14.2 G/DL HEMATOCRIT (test code = 1004) 44.1 % MCV (test code = 1005) 86.8 fL MCH (test code = 1006) 28.0 PG MCHC (test code = 1007) 32.2 G/DL RDW (test code = 1038) 13.6 % NEUTROPHILS (test code = 1008) 56 % LYMPHOCYTES (test code = 1010) 36 % MONOCYTES (test code = 1011) 7 % EOSINOPHILS (test code = 1012) 1 % BASOPHILS (test code = 1013) % PLATELET COUNT (test code = 1015) 180 K/UL CBC W/AUTO [id number] 00:00:00 Test Item Value Reference Range Interpretation Comments WBC (test code = 1001) 9.7 K/UL RBC (test code = 1002) 5.08 M/UL HEMOGLOBIN (test code = 1003) 14.2 G/DL HEMATOCRIT (test code = 1004) 44.1 % MCV (test code = 1005) 86.8 fL MCH (test code = 1006) 28.0 PG MCHC (test code = 1007) 32.2 G/DL RDW (test code = 1038) 13.6 % NEUTROPHILS (test code = 1008) 56 % LYMPHOCYTES (test code = 1010) 36 % MONOCYTES (test code = 1011) 7 % EOSINOPHILS (test code = 1012) 1 % BASOPHILS (test code = 1013) % PLATELET COUNT (test code = 1015) 180 K/UL HEMOGLOBIN [id number] 00:00:00 Test Item Value Reference Range Interpretation Comments HEMOGLOBIN A1c (test code = 04451) 6.5 % HEMOGLOBIN [id number] 00:00:00 Test Item Value Reference Range Interpretation Comments HEMOGLOBIN A1c (test code = 66209) 6.5 % [id number] 00:00:00 Test Item Value Reference Range Interpretation Comments TSH (test code = 2821) 1.7 UIU/ML [id number] 00:00:00 Test Item Value Reference Range Interpretation Comments TSH (test code = 2821) 1.7 UIU/ML COMPREHENSIVE METABOLIC [id number] 00:00:00 Test Item Value Reference Range Interpretation Comments GLUCOSE (test code = 2217) 125 MG/DL BUN (test code = 2208) 10 MG/DL CREATININE (test code = 2214) 0.57 MG/DL eGFR AMER. (test code 144 ML/MIN/1.73 = 43976) eGFR NON- AMER. (test 124 ML/MIN/1.73 code = 80336) CALCULATED BUN/CREAT (test 18 RATIO code = 2235) SODIUM (test code = 2231) 136 MEQ/L POTASSIUM (test code = 2228) 3.9 MEQ/L CHLORIDE (test code = 2215) 104 MEQ/L CARBON DIOXIDE (test code = 20 MEQ/L 2205) CALCIUM (test code = 220) 9.9 MG/DL PROTEIN, TOTAL (test code = 7.2 G/DL 2228) ALBUMIN (test code = 2201) 4.4 G/DL CALCULATED GLOBULIN (test 2.8 G/DL code = 2240) CALCULATED A/G RATIO (test 1.6 RATIO code = 2234) BILIRUBIN, TOTAL (test code = 0.4 MG/DL 2206) ALKALINE PHOSPHATASE (test 58 U/L code = 220) SGOT (AST) (test code = 2218) 20 U/L SGPT (ALT) (test code = 2219) 32 U/L LIPID [id number] 00:00:00 Test Item Value Reference Range Interpretation Comments CHOLESTEROL (test code = 2210) 194 MG/DL TRIGLYCERIDES (test code = 2232) 270 MG/DL HDL CHOLESTEROL (test code = 2220) 40 MG/DL CALCULATED LDL CHOL (test code = 100 MG/DL 2236) RISK RATIO LDL/HDL (test code = 2.50 RATIO 8)
[2022-06-18] MEDS ORDERED: NA CHLORIDE 0.9% 1,000 ML ONE (08:55)
[2022-06-18] MEDS ORDERED: ONDANSETRON 4 MG/2 ML VIAL ONE (09:00)
[2022-06-18 09:07] LABS: Urine Blood 3+ (Negative); Urine Glucose Negative (Negative); Urine Protein 2+ (Negative); Urine Specific Gravity 1.015 (1.005-1.030); Urine pH >=9.0 (5.0-7.0)
[2022-06-18 09:12] LABS: Absolute Lymphocytes (CBC) 1.2 K/uL (0.7-4.9); Hematocrit 40.9 % (36.0-45.0); Lymphocytes % 10.9 % (15.3-44.8); MCV 86.3 fL (80-100); MPV 9.4 fL (7.6-11.3); RBC Red Blood Cell Count 4.74 M/uL (3.86-4.86)
[2022-06-18 09:16] LABS: Urine Specific Gravity/Preg 1.015 (1.005-1.030)
[2022-06-18 09:43] LABS: Albumin 3.7 g/dL (3.4-5.0); Bilirubin Total 0.3 mg/dL (0.2-1.0); Protein, Total 7.1 g/dL (6.4-8.2)
[2022-06-18 09:44] LABS: Potassium 4.1 mmol/L (3.5-5.1)
--- NOTE | 2022-06-18 10:18 | RAD REPORT ---
EXAM DESCRIPTION: CT - Abdomen Pelvis W Contrast - 06/18/2022 9:55 am CLINICAL HISTORY: lower abdominal pain COMPARISON: No comparisons TECHNIQUE: Biphasic, helical CT imaging of the abdomen and pelvis was performed following 100 ml non -ionic IV contrast. No oral contrast administered. All CT scans are performed using dose optimization technique as appropriate and may include automated exposure control or mA/KV adjustment according to patient size. FINDINGS: No suspicious findings in the lung bases. The liver, spleen, and pancreas show no suspicious findings. Gallbladder and biliary tree are also wi thout suspicious finding. Symmetric renal function is seen with no hydronephrosis or suspicious renal mass. No pyelonephritis o r acute parenchymal process. No bladder abnormalities. No adrenal abnormalities. Normal size uterus i s seen. A small 12 mm exophytic fibroid projects from the right fundal uterus. Bilateral ovarian cyst s are present up to 2 cm in size. No cyst rupture or hemorrhage. No suspicious adnexal finding. No dilated bowel loops or bowel wall thickening. No appendicitis. Very minimal diverticulosis is seen . No free air, free fluid or inflammatory stranding. No hernia, mass or bulky lymphadenopathy. No suspicious bony findings. IMPRESSION: Contrast enhanced CT abdomen and pelvis showing no acute or emergent finding. No cyst rupture or hemorrhage. 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
[2022-06-18] MEDS ORDERED: KETOROLAC 30 MG/ML INJ ONE (10:37)
[2022-06-18] MEDS ORDERED: MORPHINE 2 MG/ML SYR ONE (10:44)
--- NOTE | 2022-06-18 12:16 | RAD REPORT ---
EXAM DESCRIPTION: US - Transvaginal Study Probe - 06/18/2022 11:48 am CLINICAL HISTORY: right sided pelvic pain COMPARISON: Abdomen Pelvis W Contrast dated 06/18/2022 TECHNIQUE: Endovaginal sonography was performed. FINDINGS: Uterus is normal size with no endometrial or significant myometrial abnormality. Small fun william fibroid seen on the CT study is identified at sonography. This measures slightly larger at sonogr aphy at approximately 17 mm. Endometrial stripe is 9 mm in thickness. No blood or fluid in the cul de sac. Both ovaries identified and show normal blood flow within the ov rangel stroma. No dominant solid or cystic ovarian or adnexal finding. IMPRESSION: As detailed above, endovaginal ultrasound study shows no significant or suspicious findi ng.
--- NOTE | 2022-06-18 12:21 | ER ---
Nurse's Notes [facility] Name: Ching Puente Age: 37 yrs Sex: Female : 1985 Arrival Date: 06/18/2022 Time: 08:00 Bed 23 Private MD: Diagnosis: Pelvic and perineal pain Presentation: 06/18 08:26 Chief complaint: Patient states: I started my period at 0630am and am having really bad 5 lower abdominal pain, I thought it was cramps but it's really bad. Coronavirus screen: Vaccine status: Patient reports receiving the 2nd dose of the covid vaccine. Ebola Screen: Patient negative for fever greater than or equal to 101.5 degrees Fahrenheit, and additional compatible Ebola Virus Disease symptoms Patient denies exposure to infectious person. Patient denies travel to an Ebola-affected area in the 21 days before illness onset. Initial Sepsis Screen: Does the patient meet any 2 criteria? No. Patient's initial sepsis screen is negative. Does the patient have a suspected source of infection? No. Patient's initial sepsis screen is negative. Risk Assessment: Do you want to hurt yourself or someone else? Patient reports no desire to harm self or others. Onset of symptoms was June 18, 2022. 08:26 Method Of Arrival: Ambulatory [facility] 08:26 Acuity: ANDERSON 3 5 Triage Assessment: 08:38 General: Appears in no apparent distress. uncomfortable, obese, Behavior is calm, jh5 cooperative, appropriate for age. Pain: Complains of pain in abdomen. GI: Abdomen is round Reports lower abdominal pain. 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 - Social history:: Smoking status: Patient denies any tobacco usage or history of. Screenin:02 Abuse screen: Denies threats or abuse. Nutritional screening: No deficits noted. ap3 Tuberculosis screening: No symptoms or risk factors identified. Assessment: 09:02 GI: Bowel sounds present X 4 quads. Abd is soft X 4 quads. ap3 11:48 Reassessment: Pt back from US. Awaiting results. ss 12:55 Reassessment: Patient appears in no apparent distress at this time. Patient and/or ss family updated on plan of care and expected duration. Pain level reassessed. Patient is alert, oriented x 3, equal unlabored respirations, skin warm/dry/pink. Patient states feeling better. Patient states symptoms have improved. Vital Signs: 08:26 BP 93 / 37; Pulse 70; Resp 18; Temp 96.7; Pulse Ox 100% ; Weight 83.91 kg; Height 5 ft. [facility] 6 in. (167.64 cm); Pain 8/10; 08:49 BP 105 / 59; ap3 10:33 BP 113 / 68; Pulse 65; Resp 14; Pulse Ox 100% on R/A; Pain 8/10; ss 08:26 Body Mass Index 29.86 (83.91 kg, 167.64 cm) [facility] ED Course: 08:00 Patient arrived in ED. [facility] 08:03 Rios Rodriguez PA is PHCP. [facility] 08:03 Hailey Beebe MD is Attending Physician. [facility] 08:38 Triage completed. [facility] 08:38 Arm band placed on right wrist. [facility] 08:51 Rocío Jacobs, HYUN is Primary Nurse. ap3 09:00 Inserted saline lock: 20 gauge in right antecubital area, using aseptic technique. ap3 Blood collected. 09:02 Patient has correct armband on for positive identification. Adult w/ patient. Pulse ox ap3 on. NIBP on. Warm blanket given. 09:09 CBC with Diff Sent. kc6 09:09 CMP Sent. kc6 09:09 Lipase Sent. kc6 09:10 Urine --Ancillary (enter results) Sent. kc6 09:56 CT Abd/Pelvis - IV Contrast Only In Process Unspecified. EDMS 11:32 Transvaginal Study Probe In Process Unspecified. EDMS 12:24 Tao Brooke MD is Referral Physician. [facility] 12:55 No provider procedures requiring assistance completed. IV discontinued, intact, ss bleeding controlled, No redness/swelling at site. Pressure dressing applied. Administered Medications: 08:43 CANCELLED (blood pressuree): morphine 4 mg IVP once over 4 mins ap3 09:01 Drug: Zofran (Ondansetron) 4 mg Route: IVP; Site: right antecubital; ap3 09:01 Drug: NS 0.9% 1000 ml Route: IV; Rate: 1 bolus; Site: right antecubital; ap3 12:56 Follow up: IV Status: Completed infusion; IV Intake: 1000ml ss 10:32 Drug: Ketorolac 30 mg Route: IVP; Site: right antecubital; ss 12:54 Follow up: Response: No adverse reaction ss 10:37 Drug: morphine 2 mg Route: IVP; Infused Over: 4 mins; Site: right antecubital; ss 12:54 Follow up: Response: No adverse reaction; Pain is decreased ss Medication: 09:02 VIS not applicable for this client. ap3 Intake: 12:56 IV: 1000ml; Total: 1000ml. ss Outcome: 12:20 Discharge ordered by MD. everett 12:55 Discharged to home ambulatory, with family. ss 12:55 Condition: good 12:55 Discharge instructions given to patient, family, Instructed on discharge instructions, follow up and referral plans. medication usage, Demonstrated understanding of instructions, follow-up care, medications, Prescriptions given X 2. 12:56 Patient left the ED. ss Signatures: Dispatcher [employer] EDMS Rios Rodriguez PA PA jmm Smirch, Shelby, RN RN Francisca Rosario4 Rocío Jacobs RN RN ap3 Yany Davis RN RN jh5 Lou Llamas6
--- NOTE | 2022-06-18 12:21 | EDPHYS ---
Physician Documentation [facility] Name: Ching Puente Age: 37 yrs Sex: Female : 1985 Arrival Date: 06/18/2022 Time: 08:00 Bed 23 Private MD: ED Physician Hailey Beebe HPI: 06/18 08:37 This 37 yrs old Female presents to ER via Ambulatory with complaints of jmm Abdominal Pain. 08:37 The patient presents with abdominal pain. Onset: The symptoms/episode began/occurred jmm gradually, today. The symptoms do not radiate. Associated signs and symptoms: Pertinent positives: nausea. The symptoms are described as achy. Modifying factors: The symptoms are alleviated by nothing, the symptoms are aggravated by nothing. The patient has not experienced similar symptoms in the past. 37-year-old female with history of diabetes mellitus the presents emerged from with complaints of right-sided pelvic pain beginning earlier today. Pain was initially attributed to beginning her menses. States pain is more intense than previous episodes.. 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 - Social history:: Smoking status: Patient denies any tobacco usage or history of. ROS: 08:37 Constitutional: Negative for fever, chills, and weight loss, Cardiovascular: Negative jmm for chest pain, palpitations, and edema, Respiratory: Negative for shortness of breath, cough, wheezing, and pleuritic chest pain. 08:37 Abdomen/GI: Positive for abdominal pain. 08:37 : Positive for pelvic pain. 08:37 All other systems are negative. Exam: 08:37 Constitutional: This is a well developed, well nourished patient who is awake, alert, jmm and in no acute distress. Head/Face: atraumatic. Eyes: EOMI, no conjunctival erythema appreciated ENT: Moist Mucus Membranes Neck: Trachea midline, Supple Chest/axilla: Normal chest wall appearance and motion. Cardiovascular: Regular rate and rhythm. No edema appreciated Respiratory: Normal respirations, no respiratory distress appreciated 08:37 Back: Normal ROM Skin: General appearance color normal MS/ Extremity: Moves all extremities, no obvious deformities appreciated, no edema noted to the lower extremities Neuro: Awake and alert Psych: Behavior is normal, Mood is normal, Patient is cooperative and pleasant 08:37 Abdomen/GI: Inspection: abdomen appears normal, Bowel sounds: normal, Palpation: soft, mild abdominal tenderness, in the suprapubic area. Vital Signs: 08:26 BP 93 / 37; Pulse 70; Resp 18; Temp 96.7; Pulse Ox 100% ; Weight 83.91 kg; Height 5 ft. jh5 6 in. (167.64 cm); Pain 8/10; 08:49 BP 105 / 59; ap3 10:33 BP 113 / 68; Pulse 65; Resp 14; Pulse Ox 100% on R/A; Pain 8/10; ss 08:26 Body Mass Index 29.86 (83.91 kg, 167.64 cm) 5 MDM: 08:37 Patient medically screened. everett 12:19 Data reviewed: vital signs, nurses notes. Counseling: I had a detailed discussion with everett the patient and/or guardian regarding: the historical points, exam findings, and any diagnostic results supporting the discharge/admit diagnosis, lab results, radiology results, the need for outpatient follow up, to return to the emergency department if symptoms worsen or persist or if there are any questions or concerns that arise at home. ED course: Pain alleviated in the ED. Advised follow-up PCP or POOLING OPERATOR and otherwise given strict return precautions. Patient understands agrees plan of care.. 06/18 08:37 Order name: CBC with Diff; Complete Time: 09:15 [facility] 06/18 08:37 Order name: CMP; Complete Time: 09:50 [facility] 06/18 08:37 Order name: Lipase; Complete Time: 09:50 [facility] 06/18 08:38 Order name: CT Abd/Pelvis - IV Contrast Only; Complete Time: 10:19 [facility] 06/18 09:08 Order name: Urine Dipstick-Ancillary; Complete Time: 09:11 [facility] 06/18 09:09 Order name: Urine --Ancillary (enter results); Complete Time: 09:17 06/18 08:37 Order name: IV Saline Lock; Complete Time: 09:09 [facility] 06/18 10:50 Order name: Transvaginal Study Probe; Complete Time: 12:17 [facility] 06/18 08:37 Order name: Labs collected and sent; Complete Time: 09: [facility] 06/18 08:37 Order name: Urine Dipstick-Ancillary (obtain specimen); Complete Time: : [facility] 06/18 08:37 Order name: Urine Test (obtain specimen); Complete Time: 09:10 [facility] Administered Medications: 08:43 CANCELLED (blood pressuree): morphine 4 mg IVP once over 4 mins ap3 09:01 Drug: Zofran (Ondansetron) 4 mg Route: IVP; Site: right antecubital; ap3 09:01 Drug: NS 0.9% 1000 ml Route: IV; Rate: 1 bolus; Site: right antecubital; ap3 12:56 Follow up: IV Status: Completed infusion; IV Intake: 1000ml ss 10:32 Drug: Ketorolac 30 mg Route: IVP; Site: right antecubital; ss 12:54 Follow up: Response: No adverse reaction ss 10:37 Drug: morphine 2 mg Route: IVP; Infused Over: 4 mins; Site: right antecubital; ss 12:54 Follow up: Response: No adverse reaction; Pain is decreased ss Disposition Summary: 06/18/22 12:20 Discharge Ordered Location: Home [facility] Condition: Stable [facility] Diagnosis - Pelvic and perineal pain [facility] Followup: [facility] - With: Private Physician - When: 2 - 3 days - Reason: Recheck today's complaints, Continuance of care, Re-evaluation by your physician Followup: [facility] - With: Tao Brooke MD - When: 2 - 3 days - Reason: Recheck today's complaints, Continuance of care, Re-evaluation by your physician Discharge Instructions: - Discharge Summary Sheet [facility] - Pelvic Pain, Female [facility] Forms: - Medication Reconciliation Form [facility] - Thank You Letter [facility] - Antibiotic Education [facility] - Prescription Opioid Use [facility] - Work release form Prescriptions: - Diclofenac Sodium 75 mg Oral Tablet Sustained Release - take 1 tablet by ORAL route 2 times per day; 30 tablet; Refills: 0, Product [facility] Selection Permitted - orphenadrine citrate 100 mg Oral Tablet Sustained Release - take 1 tablet by ORAL route 2 times per day As needed; 20 tablet; Refills: 0, [facility] Product Selection Permitted Signatures: Dispatcher [employer] EDRios Chaney PA PA jmm Smirch, Shelby, RN RN ss Rocío Jacobs RN RN ap3 Yany Davis RN RN jh5 Corrections: (The following items were deleted from the chart) 08:43 08:38 morphine 4 mg IVP once over 4 mins ordered. everett [email or web address] 10:50 10:33 Pelvis Complete+US.RAD.BRZ ordered. EDMS EDMS
[2022-06-19 15:33] VITALS: TEMP 96.7; O2SAT 100
[2022-06-19 15:37] VITALS: BP 113/68
== END 2022-06-18 12:56 | disposition home or self-care (01) ==
LOC: ER 07:58
DX: R10.2 Pelvic and perineal pain (principal); E11.9 Type 2 diabetes mellitus without complications
CPT/HCPCS: 36415; 74177; 76830; 80053; 81003; 81025; 83690; 85025; 96361; 96374; 96375; 99284; J2270; J2405; J7030; Q9967